=== PATIENT | male | born 1990 | race Caucasian/White ===

== ENCOUNTER 2016-06-14 17:28 | Emergency (ER) | payer OTHER ==
[~2016-06-14] VITALS: Ht 172.7 cm; Wt 82.0 kg
[~2016-06-14 17:28] MED LIST: AMOX875T PO; PRLSR20 PO
[2016-06-14 17:30] VITALS: TEMP 36.7; Ht 172.7 cm; Wt 82.0 kg
[2016-06-14] MEDS ORDERED: IBUP-1050 PO (18:01)
[2016-06-14] MEDS ORDERED: CYCL10TA6 PO (18:01)
[2016-06-14] MEDS ORDERED: ONDANSETRON INJ 2 MG/ML 2 ML VIAL IV STA (18:11)
[2016-06-14] MEDS ORDERED: SODIUM CHLORIDE 0.9% 500ML 500 ML IV STA (18:11)
[2016-06-14] MEDS ORDERED: MoRPHine SULFATE 4 MG/ML 1 ML CARP\\VIAL IV STA (18:11)
[2016-06-14] MEDS ORDERED: KETOROLAC TROMETHAMINE 30 MG/ML VIAL IV STA (18:11)
[2016-06-14] MEDS ORDERED: METHYLPREDNISOLONE 125 MG VIAL IV STA (18:11)
[2016-06-14] MEDS ORDERED: PRED50TA PO (19:31)
[2016-06-14] MEDS ORDERED: ONDA4TAB10 SL (19:31)
[2016-06-14] MEDS ORDERED: OXYC1TAB3 PO (19:31)
--- NOTE | 2016-06-14 19:32 | EMERGENCY ROOM VISIT NOTE ---
ED Visit Note First contact with patient: 17:35 Chief Complaint: Severe Back Pain History of Present Illness: Patient is a 26-year-old male who presents to the emergency Department for evaluation of his low back pain. The patient reports that 2 weeks ago while running he developed pain in his upper back. He had his friend crack his back which worsened his symptoms. He had followed with a chiropractor to perform an adjustment which seemed to worsen his symptoms as well. He reports pain with ambulation as well as changes in position. He was seen at a chiropractor today and had x-rays performed which were found to be unremarkable. He has appointment on with orthopedic spine surgeon. He was having worsening symptoms of pain and was directed to the emergency Department for further evaluation and management. The patient has used ibuprofen with minimal relief of symptoms. He rates his current discomfort as 8 /10. Patient denies any fevers, chills, IV drug use, chest pain, palpitations, shortness of breath, nausea, vomiting, or bowel pain. Medications: Reviewed and discussed with the patient. Allergies: Oxycodone PMH: No pertinent past medical history. SHx: Patient is a 26-year-old male who lives locally. ROS: All pertinent positive and negative review of systems are appropriately documented in the History of Present Illness. Physical Exam: VITAL SIGNS - Vital signs and nursing notes were reviewed. GENERAL - 26-year-old male appearing his stated age and in noticeable discomfort throughout the exam. NECK - FROM of the cervical spine. ABDOMEN - Abdominal contour flat without pulsations or visible masses. BS normoactive all four quadrants. No tenderness, palpable masses, hepatosplenomegaly, or ascites noted. MUSCULOSKELETAL - ROM of the thoracolumbar spine region was limited secondary to patient discomfort. Pt was laying on the exam table. Pt made guarded movements when asked to change position. No step-off deformities were palpated down the thoracolumbar spines. Moderate Tenderness to Palpation experienced at the level of the thoracolumbar paraspinal muscle distribution. No reproducible tenderness to palpation across the iliac spine. NEUROLOGIC - REFLEXES: +3/4 patellar reflexes B/L. SENSORY: Spinothalamic tract was found to be intact with ability to discriminate sharp versus dull sensation at the level of hip joint down do the great toe. No sensory defects of the dorsal column were appreciated utilizing light touch for evaluation. CEREBELLAR: Pt able to perform rapid alternating movements of the feet. EXTREMITIES - Range of Motion - No tremors, ticks, or fasciculations of the lower extremities noticed during inspection. FROM of the lower extremities. No clonus noted with PROM of the lower extremities bilaterally. Pt able to perform straight leg raises B/L without any difficulty. Sean's test (JESSICA test) was unremarkable for focal Sacroiliac Dysfunction. Hip scouring produced no pain. Pt had +5/5 strength appreciated bilaterally in the lower extremities against examiner's resistance. VASCULAR - Capillary refill of the great toe was brisk. No mottling or blanching of the extremities present. +3/5 dorsalis pedis pulses palpated bilaterally. ED Course: Patient was seen and evaluated by myself. IV lock was established. The patient was hydrated with 500 mL of normal saline. He was treated with 30 mg Toradol, 125 mg Solu-Medrol, 4 mg morphine, and 4 mg Zofran intravenously. Mother was concerned about imaging modalities, particular MRI. She did request that the exam be authorized by insurance. I did politely explained that this is an emergency facility and is past 5 PM. facility manager histology was involved and unable to receive authorization. The patient was reevaluated after his medications and feels much better he is ambulatory throughout the room and appears much better at this time. The patient has appointment with spinal surgery on . He has no radicular symptoms or worrisome exam findings for compressive etiology. He will follow closely with his surgeon. He will return for any changing or worsening symptoms per patient discharged home in good condition. In the evaluation and treatment of this patient the following differential diagnoses were considered: Cauda equina syndrome, discitis, HNP, sciatica, epidural abscess, psoas abscess, musculoskeletal strain, lumbar fracture, lumbar dislocation, lumbar subluxation, spondylolisthesis, spondylosis, or compression fracture. Impression: Thoracic Strain - Musculoskeletal Pain Discharge Instructions: You have been treated in the Emergency Department for Back Pain. You have received pain medicine in the emergency department which impairs your ability to operate a vehicle. It is illegal for you to drive after receiving these medicines. You have been prescribed OxyIR to be used for pain control. This is a narcotic medication. You cannot drive or consume alcohol while on this medicine. This medicine should only be used for pain that cannot be controlled with over-the- counter pain medicines. You have been prescribed Zofran to be used for any nausea or vomiting. Take as prescribed. You have been prescribed Prednisone 50 mg to be taken orally once a day for the next 4 days. This is an anti-inflammatory medicine to be used to help minimize your symptoms. You should take the COMPLETE course of the medication. For pain control, you can use the following myam-dwu-evcppih medicines (if >12 yo): - Regular strength (325mg/tab) Tylenol (acetaminophen) 2 tabs every 4-6 hours as needed. Do not exceed 12 tablets in a 24 hour period. Avoid taking more than 4 grams (4000 mg) of Tylenol per day. This includes any other sources of acetaminophen you may take on a regular basis. - Regular strength (200 mg/tab) Advil (ibuprofen) 1-2 tabs every 4-6 hours as needed. Do not exceed a dose of 3200 mg per day. If this is an acute injury, ice can be applied to the area of pain for the first 3 days to help decrease pain and inflammation. After the first 3 days, a heating pad can be used over the area for continued soothing relief. You should schedule a follow-up appointment in 2-3 days with your Primary Care Provider for further evaluation and treatment of your back pain. Return to the Emergency Department if your current symptoms worsen despite treatment course outlined above, or if you develop any of the following symptoms : intractable pain despite aforementioned treatment course, loss of control of your bowel or bladder, numbness or tingling in your groin, or development of a fever. Problem List Medical Problems: (1) GERD (gastroesophageal reflux disease) Status: Chronic Surgical Problems: (1) S/P cholecystectomy Status: Resolved Current/Historical Medications Scheduled Prednisone (Prednisone), 50 MG PO DAILY Scheduled PRN Cyclobenzaprine Hcl (Flexeril), 10 MG PO TID PRN for Muscle Spasms Ibuprofen (Advil), 200-600 MG PO Q4H PRN for Pain Ondasetron Odt (Zofran Odt), 1 TAB SL Q6 PRN for Nausea or Vomiting Oxycodone Ir (Roxicodone Ir), 1-2 TAB PO Q4H PRN for Pain Allergies Coded Allergies: POLLEN (Verified Allergy, Severe, THROAT SWELLS SOME, 06/14/16) Ragweed (Verified Allergy, Severe, THROAT SWELLS SOME, 06/14/16) Oxycodone (Verified Adverse Reaction, Unknown, vomit, 06/14/16) Vital Signs Date Time Temp Pulse Resp B/P Pulse Ox O2 Delivery O2 Flow Rate FiO2 06/14/16 19:41 63 18 130/65 97 06/14/16 18:44 69 18 125/53 96 Room Air 06/14/16 17:30 36.7 88 16 124/79 98 Medications Administered Medications (Trade) Dose Ordered Sig/Penny Route Start Time Stop Time Status Last Admin Dose Admin Ketorolac Tromethamine (Toradol Inj) 30 mg NOW STAT IV 06/14/16 18:11 06/14/16 18:13 DC 06/14/16 18:35 30 MG Methylprednisolone Sodium Succinate (Solu-Medrol IV) 125 mg NOW STAT IV 06/14/16 18:11 06/14/16 18:13 DC 06/14/16 18:35 125 MG Morphine Sulfate 4 mg 4 mg NOW STAT IV 06/14/16 18:11 06/14/16 18:13 DC 06/14/16 18:36 4 MG Sodium Chloride (Nss 500ml) 500 ml @ 999 mls/hr Q31M STAT IV 06/14/16 18:11 06/14/16 18:41 DC 06/14/16 18:11 999 MLS/HR Ondansetron HCl (Zofran Inj) 4 mg NOW STAT IV 06/14/16 18:11 06/14/16 18:13 DC 06/14/16 18:35 4 MG Departure Information Impression Primary Impression: Strain of thoracic region Dispostion Home / Self-Care Condition GOOD Prescriptions Prednisone (Prednisone) 50 Mg Tab 50 MG PO DAILY for 4 Days, #4 TAB Prov: Barry Espinosa PA-C 06/14/16 Ondasetron Odt (ZOFRAN ODT) 4 Mg Tab 1 TAB SL Q6 Y for Nausea or Vomiting for 5 Days, #20 TAB Prov: Barry Espinosa PA-C 06/14/16 Oxycodone Ir (Roxicodone Ir) 5 Mg Tab 1-2 TAB PO Q4H Y for Pain, #20 TAB For Initial Treatment Prov: Barry Espinosa PA-C 06/14/16 Referrals Walt Stoddard III, M.D. (PCP) Johny Estrada D.O. Patient Instructions Back Pain - [facility], My [facility] Additional Instructions You have been treated in the Emergency Department for Back Pain. You have received pain medicine in the emergency department which impairs your ability to operate a vehicle. It is illegal for you to drive after receiving these medicines. You have been prescribed OxyIR to be used for pain control. This is a narcotic medication. You cannot drive or consume alcohol while on this medicine. This medicine should only be used for pain that cannot be controlled with over-the- counter pain medicines. You have been prescribed Zofran to be used for any nausea or vomiting. Take as prescribed. You have been prescribed Prednisone 50 mg to be taken orally once a day for the next 4 days. This is an anti-inflammatory medicine to be used to help minimize your symptoms. You should take the COMPLETE course of the medication. For pain control, you can use the following eumg-pli-ngydddp medicines (if >12 yo): - Regular strength (325mg/tab) Tylenol (acetaminophen) 2 tabs every 4-6 hours as needed. Do not exceed 12 tablets in a 24 hour period. Avoid taking more than 4 grams (4000 mg) of Tylenol per day. This includes any other sources of acetaminophen you may take on a regular basis. - Regular strength (200 mg/tab) Advil (ibuprofen) 1-2 tabs every 4-6 hours as needed. Do not exceed a dose of 3200 mg per day. If this is an acute injury, ice can be applied to the area of pain for the first 3 days to help decrease pain and inflammation. After the first 3 days, a heating pad can be used over the area for continued soothing relief. You should schedule a follow-up appointment in 2-3 days with your Primary Care Provider for further evaluation and treatment of your back pain. Return to the Emergency Department if your current symptoms worsen despite treatment course outlined above, or if you develop any of the following symptoms : intractable pain despite aforementioned treatment course, loss of control of your bowel or bladder, numbness or tingling in your groin, or development of a fever. Problem Qualifiers Primary Impression: Strain of thoracic region Encounter type: initial encounter Qualified Codes: S29.019A - Strain of muscle and tendon of unspecified wall of thorax, initial encounter
[2016-06-14 19:41] VITALS: BP 130/65; PULSE 63; O2SAT 97
== END 2016-06-14 19:43 | disposition home or self-care (01) ==
LOC: C.EDB 17:29 → C.EDD 19:43
DX: S29.012A Strain of muscle and tendon of back wall of thorax, initial encounter (principal); X58.XXXA Exposure to other specified factors, initial encounter; Y93.02 Activity, running; K21.9 Gastro-esophageal reflux disease without esophagitis; Z90.49 Acquired absence of other specified parts of digestive tract; Z88.5 Allergy status to narcotic agent; Z91.09 Other allergy status, other than to drugs and biological substances

== ENCOUNTER 2016-12-04 19:06 | Emergency (ER) | payer OTHER ==
[~2016-12-04] VITALS: Ht 172.7 cm; Wt 88.2 kg
[~2016-12-04 19:06] MED LIST changes: -AMOX875T PO; +CYCL10TA6 PO; +IBUP-1050 PO; +OXYC1TAB3 PO; -PRLSR20 PO
[2016-12-04 19:12] VITALS: Ht 172.7 cm; Wt 88.2 kg
[2016-12-04 20:10] LABS: BASO % 0.5 %; BASO ABS # 0.03 K/uL (0-0.2); COMPLETE YES; EOS % 0.6 %; HEMATOCRIT 40.9 % (42-52); IG% 0.2 %; LYMPH % 20.9 %; LYMPH ABS # 1.37 K/uL (1.2-3.4); MEAN CELL VOLUME 84.2 fL (80-100); MEAN CORPUSCULAR HEMOGLOBIN 29.6 pg (25-34); MEAN CORPUSCULAR HGB CONC 35.2 g/dl (32-36); MEAN PLATELET VOLUME 9.6 fL (7.4-10.4); MONO % 8.4 %; NEUT % 69.4 %; PLATELET COUNT 186 K/uL (130-400); RED BLOOD COUNT 4.86 M/uL (4.7-6.1); WHITE BLOOD COUNT 6.54 K/uL (4.8-10.8)
[2016-12-04 20:28] LABS: CALCIUM 8.7 mg/dl (8.5-10.1); CREATININE 0.84 mg/dl (0.60-1.40); POTASSIUM 3.9 mmol/L (3.5-5.1)
[2016-12-04] MEDS ORDERED: VALA1TAB2 PO (21:16)
[2016-12-04 21:25] VITALS: BP 114/67; PULSE 68; TEMP 37.3; O2SAT 98
--- NOTE | 2016-12-05 03:10 | EMERGENCY ROOM VISIT NOTE ---
History Report prepared by Francoise: Bushra Merino Under the Supervision of: Dr. Scotty Oden M.D. First contact with patient: 19:16 Chief Complaint: OTHER COMPLAINT Stated Complaint: SWOLLEN LYMPH NODES IN GROIN History of Present Illness The patient is a 26 year old male who presents to the Emergency Room with complaints of intermittent numbness at the tip of his penis starting seven months ago. The patient states that it appears to be open like an ulcer. He reports that he saw his PCP for this in the past who told him it is from overuse and too much sex. The patient reports that it has gotten better in the past, but this time it has not. He states that this is the worst it has ever been. The patient complains of swollen lymph nodes in his groin and sore hips. He notes he took 2 Ibuprofen before coming in with little relief. The patient denies any blisters, penile discharge, burning with urination, use of condoms, and use of spermicides. The patient notes that he believes this originally all started from using a condom once. He notes that he was on Doxycycline recently for a spider bite on his left calf. He notes it made him very sick and he even vomited from it. He states that he has had MRSA in the past and that is what they were worried about. He notes he stopped taking it after a day because he felt tingly. Source of History: patient, spouse/significant other Onset: seven months ago Position: other (Penis) Quality: numbness Timing: intermittent Modifying Factors (Relieving): ibuprofen Associated Symptoms: No urinary symptoms Note: The patient complains of swollen lymph nodes in his groin and sore hips. The patient denies any blisters, penile discharge, use of condoms, and use of spermicides Review of Systems See HPI for pertinent positives & negatives. A total of 10 systems reviewed and were otherwise negative. Past Medical & Surgical Medical Problems: (1) GERD (gastroesophageal reflux disease) Surgical Problems: (1) S/P cholecystectomy Old medical records were reviewed. Nurse's notes were reviewed and I agree with. Family History Cancer Gallbladder disease Social History Smoking Status: Never Smoker Marital Status: in relationship Housing Status: lives with significant other Occupation Status: employed Current/Historical Medications Scheduled Valacyclovir Hcl (Valtrex), 1,000 MG PO BID Scheduled PRN Ibuprofen (Advil), 200-600 MG PO Q4H PRN for Pain Allergies Coded Allergies: POLLEN (Verified Allergy, Severe, THROAT SWELLS SOME, 12/04/16) Ragweed (Verified Allergy, Severe, THROAT SWELLS SOME, 12/04/16) Oxycodone (Verified Adverse Reaction, Unknown, vomit, 12/04/16) Physical Exam Vital Signs Date Time Temp Pulse Resp B/P (MAP) Pulse Ox O2 Delivery O2 Flow Rate FiO2 12/04/16 21:25 37.3 68 16 114/67 98 12/04/16 20:54 68 16 114/67 98 Room Air 12/04/16 19:12 37.3 71 16 158/78 98 Room Air Physical Exam General: Non-ill appearing young male in no acute distress. Mildly anxious appearing. HEENT: Normal cephalic atraumatic. Pupils are equal round and reactive to light. Extraocular movements are intact. Oropharynx is pink with moist mucous membranes. No swelling of the mouth lips or tongue. Neck: Supple with a midline trachea. No meningeal signs or stiffness, no JVD or bruits. No Stridor. Chest: Clear to auscultation bilaterally. No wheezes or rhonchi. No increased work of breathing. Heart: regular rate and rhythm. Abdomen: Soft nontender, nondistended without rebound guarding or rigidity. : No significant lymphadenopathy in groin. No penile discharge. Scabbed lesions on the right side of the penis. No blisters. It is somewhat excoriated. Extremities: No cyanosis clubbing or edema. No calf tenderness or assymetry Spine/Back. Non tender to palpation. No CVA tenderness Skin: Good turgor without rashes. Neurologic exam: Cranial nerves two through 12 are intact. Motor and sensation are intact and symmetrical throughout. Medical Decision & Procedures Laboratory Results 12/04/16 19:57 Red Blood Count 4.86, Mean Corpuscular Volume 84.2, Mean Corpuscular Hemoglobin 29.6, Mean Corpuscular Hemoglobin Concent 35.2, Mean Platelet Volume 9.6, Neutrophils (%) (Auto) 69.4, Lymphocytes (%) (Auto) 20.9, Monocytes (%) (Auto) 8.4, Eosinophils (%) (Auto) 0.6, Basophils (%) (Auto) 0.5, Neutrophils # (Auto) 4.54, Lymphocytes # (Auto) 1.37, Monocytes # (Auto) 0.55, Eosinophils # (Auto) 0.04, Basophils # (Auto) 0.03 12/04/16 19:57 Test 12/04/16 19:23 12/04/16 19:57 White Blood Count 6.54 K/uL (4.8-10.8) Red Blood Count 4.86 M/uL (4.7-6.1) Hemoglobin 14.4 g/dL (14.0-18.0) Hematocrit 40.9 % (42-52) Mean Corpuscular Volume 84.2 fL (80-100) Mean Corpuscular Hemoglobin 29.6 pg (25-34) Mean Corpuscular Hemoglobin Concent 35.2 g/dl (32-36) Platelet Count 186 K/uL (130-400) Mean Platelet Volume 9.6 fL (7.4-10.4) Neutrophils (%) (Auto) 69.4 % Lymphocytes (%) (Auto) 20.9 % Monocytes (%) (Auto) 8.4 % Eosinophils (%) (Auto) 0.6 % Basophils (%) (Auto) 0.5 % Neutrophils # (Auto) 4.54 K/uL (1.4-6.5) Lymphocytes # (Auto) 1.37 K/uL (1.2-3.4) Monocytes # (Auto) 0.55 K/uL (0.11-0.59) Eosinophils # (Auto) 0.04 K/uL (0-0.5) Basophils # (Auto) 0.03 K/uL (0-0.2) RDW Standard Deviation 37.8 fL (36.4-46.3) RDW Coefficient of Variation 12.3 % (11.5-14.5) Immature Granulocyte % (Auto) 0.2 % Immature Granulocyte # (Auto) 0.01 K/uL (0.00-0.02) Anion Gap 8.0 mmol/L (3-11) Est Creatinine Clear Calc Drug Dose 143.8 ml/min Estimated GFR () 140.1 Estimated GFR (Non- 120.8 BUN/Creatinine Ratio 10.0 (10-20) Calcium Level 8.7 mg/dl (8.5-10.1) Laboratory studies as stated above per my review. Medications Administered Medications (Trade) Dose Ordered Sig/Penny Route Start Time Stop Time Status Last Admin Dose Admin Valacyclovir HCl (Valtrex Tab) 1,000 mg NOW ONCE PO 12/04/16 21:15 12/04/16 21:16 DC 12/04/16 21:24 1,000 MG ED Course 1916: Past medical records reviewed. The patient was evaluated in room B12B, and a complete history and physical examination were performed. 2105: Upon reevaluation, the patient is resting comfortably. I discussed the results and treatment plan with him. He verbalized agreement of the treatment plan. The patient was discharged home. 2114:Ordered Valtrex Tab 1000 mg PO. Medical Decision Differential diagnoses include herpetic lesion, infection, STD, yeast infection , trauma. This patient comes in as described above he has penile lesions. He's had this for several months and it seems to get worse after has intercourse. His doctor thought it could be related to friction. He's had no fever or systemic complaints he feels a get some lymph nodes in his groin have on exam there is no palpable or tender lymph nodes. I do not see any blisters at this point to suggest herpetic lesions any reports none however his girlfriend does have a fever sore on her upper lip which would raise concern for herpetic infection. He has nothing to suggest cellulitis. Blood work was obtained is no white count or fever to suggest infection. I did an RPR admits pending. These the lesion does not appear to be likely consistent with syphilis. I did a HSV PCR which is pending. I will put the patient on Valtrex to cover the possibly for herpetic lesion 1000 milligrams twice a day and recommend that he follow up with his regular doctor . he can also use antifungal/antibacterial cream and return if increasing pain, worsening symptoms, fever chills, any new problems concerns. He was happy with the plan and discharged home. Impression Primary Impression: Penile lesion Scribe Attestation The scribe's documentation has been prepared under my direction and personally reviewed by me in its entirety. I confirm that the note above accurately reflects all work, treatment, procedures, and medical decision making performed by me. Departure Information Dispostion Home / Self-Care Prescriptions Valacyclovir Hcl (VALTREX) 1 Gm Tab 1000 MG PO BID for 10 Days, #20 TAB Prov: Scotty Oden M.D. 12/04/16 Referrals Walt Stoddard III, M.D. (PCP) Forms HOME CARE DOCUMENTATION FORM, IMPORTANT VISIT INFORMATION, WORK / SCHOOL INSTRUCTIONS Patient Instructions My [facility] Additional Instructions Rest. May apply antifungal cream such as Lotrimin and an antibiotic ointment such as Neosporin Use Valtrex 1000 mg twice a day Avoid intercourse until healed Follow-up with your doctor this week for follow-up on the culture results Return to the ER if: Increasing pain, worsening of symptoms, fever or chills, any new problems or concerns.
[2016-12-07 00:44] LABS: CHLAMYDIA TRACH RNA*** NOT DETECTED (NOT DETECTED); GC (NEIS GONORRHOEAE)RNA** NOT DETECTED (NOT DETECTED)
[2016-12-07 02:35] LABS: HSV TYPE 1 DNA Detected (Not Detected); HSV TYPE 1&2 DNA SOURCE Swab; HSV TYPE 2 DNA Not Detected (Not Detected)
== END 2016-12-04 21:31 | disposition home or self-care (01) ==
LOC: C.EDB 19:07
DX: N48.9 Disorder of penis, unspecified (principal); Z86.14 Personal history of Methicillin resistant Staphylococcus aureus infection; Z90.49 Acquired absence of other specified parts of digestive tract